=== PATIENT | male | born 1945 | race Two or more races ===

== ENCOUNTER 2021-06-02 13:31 | Emergency (ER) | payer OTHER ==
[~2021-06-02] VITALS: Ht 177.8 cm; Wt 72.6 kg
[2021-06-02] MEDS ORDERED: traMADol HCL 50 MG TAB PO ONE (17:30)
[2021-06-02 18:42] VITALS: BP 163/100
== END 2021-06-02 19:55 | disposition home or self-care (01) ==
LOC: ER 13:31 → EDBD 13:31 → ER 19:55
DX: S01.511A Laceration without foreign body of lip, initial encounter (principal); S01.21XA Laceration without foreign body of nose, initial encounter; S80.01XA Contusion of right knee, initial encounter; R04.0 Epistaxis; R51.9 Headache, unspecified; V49.49XA Driver injured in collision with other motor vehicles in traffic accident, initial encounter; Y93.89 Activity, other specified; Y92.488 Other paved roadways as the place of occurrence of the external cause; Y99.8 Other external cause status
CPT/HCPCS: 70450; 70486; 71045; 71250; 72125; 73560; 73700